=== PATIENT | female | born 1960 | race American Indian/Alaskan Native ===

== ENCOUNTER 2018-01-14 22:25 | Emergency (ER) | payer OTHER ==
[2018-01-14 23:39] LABS: Basophils % (Auto) 0.8 % (0.0-1.8); Eosinophils # (Auto) 0.1 K/mm3 (0.0-0.4); Eosinophils % (Auto) 1.5 % (0.0-4.3); Hematocrit 36.3 % (30.3-42.9); Hemoglobin 12.1 gm/dl (10.1-14.3); Lymphocytes # (Auto) 2.8 K/mm3 (1.2-5.4); Lymphocytes % (Auto) 43.5 % (13.4-35.0); Mean Corpuscular HGB Conc 33 % (30-34); Mean Corpuscular Hemoglobin 29 pg (28-32); Mean Corpuscular Volume 87 fl (79-97); Monocytes # (Auto) 0.4 K/mm3 (0.0-0.8); Monocytes % (Auto) 6.6 % (0.0-7.3); Platelet Count 234 K/mm3 (140-440); Red Blood Count 4.18 M/mm3 (3.65-5.03); Red Cell Distribution Width 13.3 % (13.2-15.2)
[2018-01-14 23:52] LABS: BUN/Creatinine Ratio 17; Blood Urea Nitrogen 12 mg/dL (7-17); Calcium 9.2 mg/dL (8.4-10.2); Hemolysis Index 0
[2018-01-15] MEDS ORDERED: ALUM-MAG HYDROX-SIMETH 200-200-20MG/5ML PO ONE (04:04)
--- NOTE | 2018-01-15 04:49 | XRay Report ---
FINAL REPORT EXAM: XR CHEST ROUTINE 2V HISTORY: chest pain TECHNIQUE: PA and lateral views of the chest were submitted. FINDINGS: Heart size and mediastinum appear normal. The lungs are clear. Pleural fluid is not seen. The bones and soft tissues reveal mild disc degeneration in the thoracic spine. IMPRESSION: No active chest disease.
--- NOTE | 2018-01-15 06:28 | Emergency Department Report ---
ED General Adult HPI - General Chief complaint: Chest Pain Stated complaint: CHEST PAIN Time Seen by Provider: 01/15/18 03:53 Source: patient Mode of arrival: Stretcher Limitations: No Limitations - Related Data Home Medications Medication Instructions Recorded Confirmed Last Taken Aspirin EC 81 mg PO DAILY 03/15/15 03/15/15 03/15/15 Benicar HCT 40-12.5 mg 1 tab PO DAILY 03/15/15 03/15/15 03/15/15 Butalb/Acetamin/Caff 50-325-40 1 tab PO QDAY PRN 03/15/15 03/16/15 Unknown [Fioricet] Rosuvastatin (Nf) [Crestor] 10 mg PO QHS 03/15/15 03/15/15 03/15/15 Previous Rx's Medication Instructions Recorded Last Taken Type Famotidine [Pepcid] 20 mg PO BID #60 tablet 03/16/15 Unknown Rx Allergies Allergy/AdvReac Type Severity Reaction Status Date / Time Penicillins Allergy Hives Verified 03/15/15 14:07 ED Review of Systems ROS: Stated complaint: CHEST PAIN Other details as noted in HPI ED Past Medical Hx - Past Medical History Hx Hypertension: Yes Hx Heart Attack/AMI: No Hx Congestive Heart Failure: No Hx Diabetes: No Hx Deep Vein Thrombosis: No Hx Pulmonary Embolism: No Hx GERD: Yes Hx Asthma: No Hx COPD: No Hx Tuberculosis: No Additional medical history: High Cholesterol - Surgical History Hx Coronary Stent: No Hx Pacemaker: No Hx Internal Defibrillator: No Additional Surgical History: heart cath 2010 - Social History Smoking Status: Never Smoker Substance Use Type: None - Medications Home Medications: Home Medications Medication Instructions Recorded Confirmed Last Taken Type Aspirin EC 81 mg PO DAILY 03/15/15 03/15/15 03/15/15 History Benicar HCT 40-12.5 mg 1 tab PO DAILY 03/15/15 03/15/15 03/15/15 History Butalb/Acetamin/Caff 50-325-40 1 tab PO QDAY PRN 03/15/15 03/16/15 Unknown History [Fioricet] Rosuvastatin (Nf) [Crestor] 10 mg PO QHS 03/15/15 03/15/15 03/15/15 History Famotidine [Pepcid] 20 mg PO BID #60 tablet 05/14/15 Unknown Rx ED Physical Exam - General Limitations: No Limitations ED Course Vital Signs 01/15/18 02:36 Temperature 97.9 F Pulse Rate 58 L Respiratory 15 Rate Blood Pressure 128/65 [Left] O2 Sat by Pulse 100 Oximetry ED Medical Decision Making - Lab Data Result diagrams: 01/14/18 23:25 01/14/18 23:25 - Medical Decision Making Ed Care signed out to Dr Baez. Awaiting CTA chest Critical care attestation.: If time is entered above; I have spent that time in minutes in the direct care of this critically ill patient, excluding procedure time. ED Disposition Condition: Stable Referrals: SATNAM DA SILVA MD [Primary Care Provider] - 3-5 Days
--- NOTE | 2018-01-15 09:11 | Cat Scan Report ---
CTA CHEST: HISTORY: Right chest pain. COMPARISON: none. TECHNIQUE: Helical CT in 1.25mm intervals following IV contrast. Pulmonary embolus protocol. Sagittal and coronal reformatted images. Rotational MIP images. FINDINGS: Contrast bolus is satisfactory. No pulmonary embolus is identified. Thyroid gland: Bilateral thyroid hypodensities are identified which probably represent small nodules. Consider further evaluation with ultrasound is needed. Tracheobronchial tree: Normal. Esophagus: Normal. Heart: Normal. Pericardium: Normal. Mediastinum: Normal. Lung [place]: normal. Pleural Spaces: Normal. Musculoskeletal: Normal. IMPRESSION: No evidence for pulmonary embolus. Unremarkable CT chest with contrast. Bilateral thyroid nodules, likely benign.
[2018-01-15 16:22] VITALS: BP 125/71
== END 2018-01-15 17:00 | disposition home or self-care (01) ==
LOC: ED 22:25
DX: R07.89 Other chest pain (principal); I10 Essential (primary) hypertension; K21.9 Gastro-esophageal reflux disease without esophagitis; E78.00 Pure hypercholesterolemia, unspecified; Z79.82 Long term (current) use of aspirin; Z88.0 Allergy status to penicillin
CPT/HCPCS: 36415; 71046; 71275; 80048; 84484; 85025; 85379; 93005; 93010; 99285; Q9967